=== PATIENT | female | born 1965 | race Caucasian/White ===

== ENCOUNTER 2017-12-07 08:30 | Day surgery (SDC) | payer BC ==
[2017-12-07] MEDS ORDERED: PROPOFOL 10 MG/ML VIAL IV ONE (08:31)
[2017-12-07] MEDS ORDERED: LIDOCAINE 2% MDV (20MG/ML) 20ML VIAL IV ONE (08:31)
--- NOTE | 2017-12-08 12:40 | Operative Note ---
DATE OF SURGERY: 12/07/2017 OPERATION: COLONOSCOPY to the cecum with cold biopsy forceps polypectomy x2. INDICATION: Colorectal cancer screening. ANESTHESIA: Intravenous sedation was administered by the department of anesthesiology and included Diprivan titrated to effect. PROCEDURE: Following informed consent from this alert individual including a discussion of the risks and benefits of the procedure and an opportunity for the patient to ask questions, the patient was in the left lateral decubitus position. A digital rectal examination was performed. No abnormalities were noted. Following this, the Olympus [id number] video colonoscope was inserted into the rectum without resistance. The rectal mucosa had a normal appearance with normal folds and distensibility. The colonoscope was advanced up through the colon to the level of the cecum with slight difficulty due to some redundancy of the bowel. Abdominal pressure support was applied by the nursing staff and the cecum was reached. The cecum was well defined by noting the appendiceal orifice and ileocecal valve. From this point, the colonoscope was then slowly withdrawn. The preparation was good. No changes were noted until the rectosigmoid colon was reached. At this point, there were 2 sessile polyps along a fold noted each measuring probably 4-5 mm in size. They were removed with cold biopsy forceps polypectomy. The remaining rectum was unremarkable. Retroflexion was endoscopically normal within the rectum. The endoscope was straightened and removed. The patient tolerated the procedure well and was returned to the recovery area in stable condition. IMPRESSION: Two 4-5 mm polyps noted along folds in the rectosigmoid colon, each removed with application of cold biopsy forceps. RECOMMENDATIONS: Further recommendations will be forthcoming pending results of pathology obtained today. Followup will also be with DARWIN Driver. As always, thank you for allowing me to participate in the care of your patient. CC: DARWIN Driver
== END 2017-12-07 11:07 | disposition home or self-care (01) ==
LOC: HOP 08:30
PROVIDERS: ATTEND Internal Medicine Gastroenterology
DX: Z12.11 Encounter for screening for malignant neoplasm of colon (principal); E03.9 Hypothyroidism, unspecified; K63.5 Polyp of colon
CPT/HCPCS: 81025